=== PATIENT | female | born 1955 | race Caucasian/White ===

== ENCOUNTER 2016-11-08 11:52 | Emergency (ER) | payer OTHER ==
[~2016-11-08] VITALS: Ht 165.1 cm; Wt 90.7 kg
[2016-11-08 12:23] VITALS: BP 164/61
== END 2016-11-08 12:23 | disposition home or self-care (01) ==
LOC: ER 11:55
DX: M25.511 Pain in right shoulder (principal); M54.2 Cervicalgia; M54.5 Low back pain; W20.8XXA Other cause of strike by thrown, projected or falling object, initial encounter; Y93.E9 Activity, other interior property and clothing maintenance; Y92.89 Other specified places as the place of occurrence of the external cause; Y99.8 Other external cause status
CPT/HCPCS: A4606; Z7610

== ENCOUNTER 2017-04-18 14:03 | Emergency (ER) | payer OTHER ==
[~2017-04-18] VITALS: Ht 162.6 cm; Wt 90.7 kg
--- NOTE | 2017-04-18 14:05 | NUR ---
BBRA FOR SYNCOPE WHILE BABYSITTING AT WORK, PT DOES NOT REMEMBER PASSING OUT. A/OX 1 AT THIS TIME. BREATHING EVEN AND UNLABORED. NO SOB. VITALS STABLE. IV INTACT AND PATENT ON RIGHT HAND, 20 G. SAFETY AND COMFORT MEASURES IN PLACE. AWAITING MD ORDERS.
[2017-04-18 14:34] LABS: BASOPHILS # (AUTO) 0.1 /CMM (0.0-0.2); BASOPHILS % (AUTO) 0.7 % (0.0-2.0); EOSINOPHILS # (AUTO) 0.1 /CMM (0.0-0.7); EOSINOPHILS % (AUTO) 1.5 % (0.0-6.0); HEMATOCRIT 43 % (33-45); HEMOGLOBIN 14.1 g/dL (11.5-14.8); LYMPHOCYTES # (AUTO) 2.3 /CMM (0.8-4.8); LYMPHOCYTES % (AUTO) 23.2 % (20.0-44.0); MEAN CORPUSCULAR HEMOGLOBIN 28 PG (26.0-33.0); MEAN CORPUSCULAR HGB CONC 33 g/dl (31.0-36.0); MEAN CORPUSCULAR VOLUME 86 fL (82-100); MONOCYTES # (AUTO) 0.8 /CMM (0.1-1.30); MONOCYTES % (AUTO) 7.8 % (2.0-12.0); NEUTROPHILS # (AUTO) 6.7 /CMM (1.8-8.9); NEUTROPHILS % (AUTO) 66.8 % (43.0-81.0); PLATELET COUNT (AUTO) 285 /CMM (150-450); RDW COEFFICIENT OF VARIATION 12.8 (11.5-15.0); RED BLOOD CELL COUNT(AUTO) 5.04 MIL/uL (4.0-5.2)
[2017-04-18 14:47] LABS: CALCIUM, SERUM 9.1 mg/dL (8.5-10.1); CARBON DIOXIDE 26 mmol/L (21-32); CHLORIDE 107 mmol/L (98-107); CREATININE 0.7 mg/dL (0.6-1.3); GLUCOSE 102 mg/dL (74-106); POTASSIUM 3.5 mmol/L (3.5-5.1); SODIUM SERUM 144 mmol/L (136-145); UREA NITROGEN, BLOOD 14 mg/dL (7-18)
[2017-04-18 14:52] LABS: ALANINE AMINOTRANSFERASE 38 U/L (12-78); ALBUMIN 3.9 g/dL (3.4-5.0); ALKALINE PHOSPHATASE 111 U/L (46-116); ASPARTATE AMINOTRANSFERASE 25 U/L (15-37); BILIRUBIN,DIRECT 0.1 mg/dL (0.0-0.2); BILIRUBIN,TOTAL 0.4 mg/dL (0.2-1.0); INR 0.95 (0.87-1.13); PROTHROMBIN TIME 9.9 SECS (9.5-12.7)
[2017-04-18 14:58] LABS: TROPONIN I < 0.017 ng/mL (0.00-0.056)
--- NOTE | 2017-04-18 16:20 | NUR ---
URINE OBTAINED AND SENT TO LAB.
[2017-04-18 17:11] LABS: APPEARANCE,URINE Clear (CLEAR); BILIRUBIN,URINE Negative (NEGATIVE); BLOOD, URINE Negative Ery/uL (NEGATIVE); COLOR,URINE Yellow (YELLOW); KETONES,URINE Negative (NEGATIVE); LEUKOCYTE ESTERASE ,URINE Negative (NEGATIVE); NITRITE, URINE Negative (NEGATIVE); PH,URINE 6.5 (5.0-8.0); PROTEIN,URINE Negative (NEGATIVE); UGLUCOSE Negative (NEGATIVE); UROBILINOGEN,URINE 0.2 EU/dL (0.2)
--- NOTE | 2017-04-18 17:45 | NUR ---
TECHNICAL SERVICE REP AT BEDSIDE FOR EVAL
[2017-04-18 17:56] LABS: ACETAMINOPHEN 4 ug/ml (10-30); ALCOHOL, BLOOD < 3 mg/dL (0-0)
[2017-04-18 18:04] LABS: SALICYLATE 0.9 mg/dL (2.8-20.0)
[2017-04-18] MEDS ORDERED: ACETAMINOPHEN ES 500 MG TABLET ONE (18:10)
[2017-04-18 18:21] VITALS: BP 136/84
--- NOTE | 2017-04-18 18:25 | NUR ---
Patient discharged to home in stable condition. Written and verbal after care instructions given. Patient verbalizes understanding of instruction.
[2017-04-18] MEDS ORDERED: ACETAMINOPHEN ES 500 MG TABLET PO ONE (18:30)
== END 2017-04-18 18:32 | disposition home or self-care (01) ==
LOC: ER 16:30
DX: R55 Syncope and collapse (principal); R42 Dizziness and giddiness; R51 Headache; H53.8 Other visual disturbances; I25.2 Old myocardial infarction
CPT/HCPCS: 36415; 70450; 80048; 80076; 80305; 80329; 81001; 84484; 85025; 85730; 93005; 99285; A4606; G0480 ×2; Z7610; 81000-TC